=== PATIENT | female | born 1995 | race Caucasian/White ===

== ENCOUNTER 2016-04-19 11:11 | Emergency (ER) | payer OTHER ==
[2016-04-19 11:58] VITALS: BP 118/80
--- NOTE | 2016-04-19 12:25 | UC ---
Throat Pain/Nasal Jason HPI - HPI Summary HPI Summary: sinus congestion, sore throat, fever and right ear pain for 7 days. - History of Current Complaint Chief Complaint: UCEar Stated Complaint: SORE THROAT Time Seen by Provider: 04/19/16 12:05 Hx Obtained From: Patient Hx Last Menstrual Period: IS ON NEXPLAMON , DOES NOT HAVE REG PERIODS ?: No Onset/Duration: Sudden Onset, Lasting Weeks Severity: Mild Pain Intensity: 3 Pain Scale Used: 0-10 Numeric Cough: Nonproductive Associated Signs & Symptoms: Positive: Dysphagia, Sinus Discomfort, Nasal Discharge, Fever - Allergies/Home Medications Allergies/Adverse Reactions: Allergies Allergy/AdvReac Type Severity Reaction Status Date / Time No Known Allergies Allergy Verified 04/19/16 11:58 Home Medications: Home Medications [id number] [Vicks Dayquil/Nyquil Janina] 1 dose PO BEDTIME 07/01 [History Confirmed 04/19/16] PMH/Surg Hx/FS Hx/Imm Hx Previously Healthy: Yes GI/ History Of: Reports: Ulcer - Surgical History Surgical History: Yes Surgery Procedure, Year, and Place: ear surgery x5 (left)--scar tissue - Family History Known Family History: Positive: Other - MOther has FMH of ovarian cysts Negative: Hypertension - Social History Alcohol Use: None Substance Use Type: None Smoking Status (MU): Never Smoked Tobacco Household Exposure Type: Cigarettes - Immunization History Most Recent Tetanus Shot: utd Vaccination Up to Date: Yes Review of Systems Constitutional: Fever, Fatigue Skin: Negative Eyes: Negative ENT: Sore Throat, Ear Ache, Nasal Discharge Respiratory: Shortness Of Breath, Cough Cardiovascular: Negative Gastrointestinal: Negative Genitourinary: Negative Motor: Negative Neurovascular: Negative Musculoskeletal: Negative Neurological: Headache Psychological: Negative All Other Systems Reviewed And Are Negative: Yes Physical Exam Triage Information Reviewed: Yes Appearance: Well-Nourished, Ill-Appearing, Pain Distress Vital Signs: Initial Vital Signs Temp 97.8 F 04/19/16 11:53 Pulse 72 04/19/16 11:53 Resp 14 04/19/16 11:53 BP 118/80 04/19/16 11:53 Pulse Ox 100 04/19/16 11:53 Vital Signs Reviewed: Yes Eye Exam: Normal Eyes: Positive: Conjunctiva Inflamed ENT: Positive: Pharyngeal erythema, Nasal congestion, Nasal drainage, TM dull, TM red, Tonsillar swelling Dental Exam: Normal Neck exam: Normal Neck: Positive: Supple, Nontender, No Lymphadenopathy Respiratory Exam: Normal Respiratory: Positive: Chest non-tender, No respiratory distress, Rhonchi, Wheezing, Inspiration Cardiovascular Exam: Normal Cardiovascular: Positive: RRR, No Murmur Abdominal Exam: Normal Abdomen Description: Positive: Nontender, No Organomegaly, Soft Bowel Sounds: Positive: Present Musculoskeletal Exam: Normal Musculoskeletal: Positive: Strength Intact, ROM Intact, No Edema Neurological Exam: Normal Psychological Exam: Normal Skin Exam: Normal Throat Pain/Nasal Course/Dx - Course Course Of Treatment: history obtained, exam performed, rapid strep negative, medication prescribed. - Differential Dx/Diagnosis Differential Diagnosis/HQI/PQRI: Influenza, Laryngitis, Otitis Media, Pharyngitis, Sinusitis, Tonsillitis, URI Provider Diagnoses: Sinusitis. Bronchospasm Discharge - Discharge Plan Condition: Stable Disposition: HOME Prescriptions: Albuterol HFA INHALER* [Ventolin HFA Inhaler*] 1 - 2 puff INH Q4H PRN #1 mdi PRN Reason: Cough Azithromycin TAB* [Zithromax TAB (Z-JAI)*] 0 mg PO .Z-JAI INSTRUCTIONS #6 tab predniSONE TAB* [Deltasone TAB*] 40 mg PO DAILY #10 tab Additional Instructions: Take the medication as prescribed and follow up with any increase in symptoms even with treatment.
== END 2016-04-19 12:42 | disposition home or self-care (01) ==
LOC: UCCORT 11:11
DX: J32.9 Chronic sinusitis, unspecified (principal); J98.01 Acute bronchospasm; R50.9 Fever, unspecified; Z77.22 Contact with and (suspected) exposure to environmental tobacco smoke (acute) (chronic)
CPT/HCPCS: 87651; 99212; G0463

== ENCOUNTER 2016-08-10 13:30 | Emergency (ER) | payer OTHER ==
[2016-08-10 13:40] VITALS: BP 132/64
--- NOTE | 2016-08-10 14:44 | RAD ---
HISTORY: Trauma, headache COMPARISONS: None TECHNIQUE: Multiple contiguous axial CT scans were obtained of the head without intravenous contrast. FINDINGS: HEMORRHAGE/INFARCT: There is no hemorrhage or acute infarct. MASSES/SHIFT: There is no mass or shift. EXTRA-AXIAL SPACES: There are no extra-axial fluid collections. SULCI AND VENTRICLES: The sulci and ventricles are normal in size and position for the patient's stated age. CEREBRUM: There are no focal parenchymal abnormalities. BRAINSTEM: There are no focal parenchymal abnormalities. CEREBELLUM: There are no focal parenchymal abnormalities. VESSELS: The vessels are grossly normal. PARANASAL SINUSES: The paranasal sinuses are clear. ORBITS: The orbits are unremarkable. BONES AND SOFT TISSUE: No bone or soft tissue abnormalities are noted. OTHER: None IMPRESSION: NO ACUTE INTRACRANIAL PATHOLOGY.
--- NOTE | 2016-08-10 14:47 | RAD ---
HISTORY: Trauma, neck pain COMPARISONS: None TECHNIQUE: Multiple contiguous axial CT scans were obtained of the cervical spine without intravenous contrast, with coronal and sagittal multiplanar reformations. FINDINGS: BRAIN: The visualized brain is unremarkable CENTRAL CANAL: Evaluation of the central canal is limited on CT technique, however there is no obvious canalicular mass or epidural hemorrhage. ALIGNMENT: There is straightening of the normal cervical lordosis. VERTEBRAL BODIES: The odontoid process is intact. The atlantoaxial intervals are symmetric. The vertebral bodies are normal in attenuation, without fracture. JOINTS: There is no subluxation or dislocation MUSCULATURE: Unremarkable INTERVERTEBRAL DISCS: There is mild diffuse loss of intervertebral disc height. AXIAL IMAGES: On axial images, there is no osseous neural foraminal narrowing or central canal stenosis. SOFT TISSUES: The visualized soft tissues of the neck are unremarkable. The prevertebral fat stripe is preserved. OTHER: None. IMPRESSION: NO ACUTE OSSEOUS INJURY TO THE CERVICAL SPINE
--- NOTE | 2016-08-10 14:52 | UC ---
Head Injury HPI - HPI Summary HPI Summary: Patient was bucked off a horse 2 days ago, hit her back and then the side of her head, she is complaining of mild stiffness in the left rib cage, but has cervical tenderness and increase B[place] and photosensitivity. bilateral temperol headache that has increased since the incident. denies any dizzyness, bilateral TMJ pain - History Of Current Complaint Chief Complaint: UCHeadInjury Stated Complaint: HEAD INJURY Time Seen by Provider: 08/10/16 13:56 Hx Obtained From: Patient Hx Last Menstrual Period: 06/03 pt has nexplanon Onset/Duration: Sudden Onset, Lasting Days Severity Currently: Moderate Severity Initially: Severe Character: Throbbing, Pressure Aggravating Factor(s): Other - chewing.movement, laying down Alleviating Factor(s): Nothing Associated Signs And Symptoms: Positive: Neck Pain - Risk Factors SDH Risk Factor: Negative - Allergies/Home Medications Allergies/Adverse Reactions: Allergies Allergy/AdvReac Type Severity Reaction Status Date / Time No Known Allergies Allergy Verified 08/10/16 13:40 PMH/Surg Hx/FS Hx/Imm Hx Previously Healthy: Yes GI/ History Of: Reports: Ulcer - Surgical History Surgical History: Yes Surgery Procedure, Year, and Place: ear surgery x5 (left)--scar tissue - Family History Known Family History: Positive: Other - MOther has FMH of ovarian cysts Negative: Hypertension - Social History Alcohol Use: None Substance Use Type: None Smoking Status (MU): Never Smoked Tobacco Household Exposure Type: Cigarettes - Immunization History Most Recent Tetanus Shot: utd Vaccination Up to Date: Yes Review of Systems Constitutional: Fatigue Skin: Negative Eyes: Photophobia, Other - pressure behind eyes ENT: Dental Pain - TMJ bilateral Respiratory: Negative Cardiovascular: Negative Gastrointestinal: Negative Genitourinary: Negative Motor: Negative Neurovascular: Negative Musculoskeletal: Arthralgia, Myalgia - left ribs Neurological: Headache Psychological: Negative All Other Systems Reviewed And Are Negative: Yes Physical Exam Triage Information Reviewed: Yes Appearance: Well-Nourished, Ill-Appearing, Pain Distress Vital Signs: Initial Vital Signs Temp 98.5 F 08/10/16 13:35 Pulse 64 08/10/16 13:35 Resp 16 08/10/16 13:35 BP 132/64 08/10/16 13:35 Pulse Ox 98 08/10/16 13:35 Vital Signs Reviewed: Yes Eye Exam: Normal Eyes: Positive: Conjunctiva Clear, Other: - PERRLA, EOMI no nystagmus, ENT: Positive: Pharynx normal, TMs normal, TM bulging Dental Exam: Normal Neck exam: Normal Respiratory Exam: Normal Respiratory: Positive: Chest non-tender, Lungs clear, Normal breath sounds Cardiovascular Exam: Normal Cardiovascular: Positive: RRR, No Murmur, Pulses Normal Abdominal Exam: Normal Abdomen Description: Positive: Nontender, No Organomegaly, Soft Bowel Sounds: Positive: Present Musculoskeletal: Positive: Edema @ - irght TMJ Neurological Exam: Normal Neurological: Positive: Alert, Muscle Tone Normal, Other: - Cranial nerves intact, + rhomberg, gait is steady Psychological Exam: Normal Skin Exam: Normal Head Injury Course/Dx - Course Course Of Treatment: hx obtained,exam performed, meds reviewed, ct of head and C spine performed, - Differential Dx/Diagnosis Differential Diagnosis/HQI/PQRI: Cervical Sprain, Contusion, Hematoma, Intracranial Bleed, Nasal Fracture, Orbital Fracture Provider Diagnoses: concussion. photosensitivity. bilateral TMJ. whiplash Discharge - Discharge Plan Condition: Stable Disposition: HOME Patient Education Materials: Concussion (ED), Cervical Strain (ED) Additional Instructions: 1. take the next 2 days to rest, limit TV and screen time, do not do things that require good quick reaction time. heat, Advil, to jaw, neck and back as needed for pain. 2. If headaches persist follow up with your doctor so that you can be followed for symtpoms.
== END 2016-08-10 15:09 | disposition home or self-care (01) ==
LOC: UCCORT 13:30
DX: S06.0X9A Concussion with loss of consciousness of unspecified duration, initial encounter (principal); S13.4XXA Sprain of ligaments of cervical spine, initial encounter; V80.010A Animal-rider injured by fall from or being thrown from horse in noncollision accident, initial encounter; Y93.52 Activity, horseback riding; Y92.9 Unspecified place or not applicable; H53.143 Visual discomfort, bilateral; M26.603 Bilateral temporomandibular joint disorder, unspecified; Z32.02 Encounter for pregnancy test, result negative; Z77.22 Contact with and (suspected) exposure to environmental tobacco smoke (acute) (chronic)
CPT/HCPCS: 70450; 72125; 84702; 99212; G0463

== ENCOUNTER 2016-10-13 08:29 | Emergency (ER) | payer OTHER ==
[2016-10-13 08:39] VITALS: BP 104/65
--- NOTE | 2016-10-13 09:10 | UC ---
Throat Pain/Nasal Jason HPI - HPI Summary HPI Summary: [address] x a day or two multiple co workers with strep she had had mono - History of Current Complaint Chief Complaint: UCRespiratory Stated Complaint: SORE THROAT Time Seen by Provider: 10/13/16 09:04 Hx Obtained From: Patient Hx Last Menstrual Period: impl[place], does not get ?: Yes Onset/Duration: Gradual Onset, Lasting Hours Severity: Moderate Pain Intensity: 4 Pain Scale Used: 0-10 Numeric Cough: None Related History: Prior ENT Surgery - left ear - Allergies/Home Medications Allergies/Adverse Reactions: Allergies Allergy/AdvReac Type Severity Reaction Status Date / Time No Known Allergies Allergy Verified 10/13/16 08:39 PMH/Surg Hx/FS Hx/Imm Hx Previously Healthy: Yes - Surgical History Surgical History: Yes Surgery Procedure, Year, and Place: ear surgery x5 (left)--scar tissue - Family History Known Family History: Positive: Other - MOther has FMH of ovarian cysts Negative: Hypertension - Social History Alcohol Use: None Substance Use Type: None Smoking Status (MU): Never Smoked Tobacco Household Exposure Type: Cigarettes - Immunization History Most Recent Tetanus Shot: utd Vaccination Up to Date: Yes Review of Systems Constitutional: Negative Skin: Negative Eyes: Negative ENT: Sore Throat Respiratory: Negative Cardiovascular: Negative Gastrointestinal: Negative Genitourinary: Negative Motor: Negative Neurovascular: Negative Musculoskeletal: Negative Neurological: Negative Psychological: Negative All Other Systems Reviewed And Are Negative: Yes Physical Exam Triage Information Reviewed: Yes Appearance: Well-Appearing, No Pain Distress, Well-Nourished Vital Signs: Initial Vital Signs Temp 98.1 F 10/13/16 08:35 Pulse 54 10/13/16 08:35 Resp 14 10/13/16 08:35 BP 104/65 10/13/16 08:35 Pulse Ox 100 10/13/16 08:35 Vital Signs Reviewed: Yes Eyes: Positive: Conjunctiva Clear ENT: Positive: Pharyngeal erythema, Tonsillar swelling. Negative: Hearing grossly normal, TMs normal - left abnormal landmarks-not red, Trismus, Muffled/ hoarse voice Neck: Positive: Supple, Enlarged Nodes @ - ant cervica; Respiratory: Positive: Lungs clear, Normal breath sounds, No respiratory distress Cardiovascular: Positive: RRR, No Murmur Musculoskeletal: Positive: ROM Intact Neurological: Positive: Alert Psychological Exam: Normal Skin Exam: Normal Throat Pain/Nasal Course/Dx - Course Course Of Treatment: rs (-) - Differential Dx/Diagnosis Provider Diagnoses: acute pharyngitis Discharge - Discharge Plan Condition: Stable Disposition: HOME Prescriptions: Cephalexin CAP* [Keflex CAP*] 500 mg PO BID #20 cap Patient Education Materials: Pharyngitis (ED) Forms: *Work Release Referrals: Non Staff,Doctor [Primary Care Provider] - Additional Instructions: recheck in 3-4 days if not better rest fluids tylenol or advil if needed
== END 2016-10-13 09:14 | disposition home or self-care (01) ==
LOC: UCCORT 08:29
DX: J02.9 Acute pharyngitis, unspecified (principal)
CPT/HCPCS: 87651; 99212; G0463

== ENCOUNTER 2017-05-08 12:42 | Emergency (ER) | payer OTHER ==
[2017-05-08 13:46] VITALS: BP 123/76
--- NOTE | 2017-05-08 13:58 | UC ---
Headache HPI - HPI Summary HPI Summary: headaches x 1 week constant, 5/10 in intensity , + photophobia, nausea, no vomiting n no cold sx - History Of Current Complaint Chief Complaint: UCGeneralIllness Stated Complaint: MIGRANES Time Seen by Provider: 05/08/17 13:47 Hx Obtained From: Patient Hx Last Menstrual Period: 05/04/17 ?: No Onset/Duration: Gradual Onset, Lasting Weeks - 1, Still Present Onset Of Symptoms: Gradual, Still Present Initially Headache Was: Moderate Currently Pain Is: Moderate Timing: Constant Character: Migraine Location of Headache: Diffuse Aggravating Factor(s): Other - increase stress Associated Signs And Symptoms: Positive: Nausea. Negative: Dizziness, Seizure, Vomiting, Sinus Pressure, Fever, Neck Pain, Neck Stiffness, Decreased LOC, Visual Changes, Other (Noted In Comments) - Allergies/Home Medications Allergies/Adverse Reactions: Allergies Allergy/AdvReac Type Severity Reaction Status Date / Time No Known Allergies Allergy Verified 05/08/17 13:46 PMH/Surg Hx/FS Hx/Imm Hx Neurological History: Migraine - Surgical History Surgical History: Yes Surgery Procedure, Year, and Place: ear surgery x5 (left)--scar tissue - Family History Known Family History: Positive: Other - MOther has FMH of ovarian cysts Negative: Hypertension - Social History Alcohol Use: None Substance Use Type: None Smoking Status (MU): Never Smoked Tobacco Household Exposure Type: Cigarettes - Immunization History Most Recent Influenza Vaccination: NOT CURRENT Most Recent Tetanus Shot: utd Vaccination Up to Date: Yes Review of Systems Constitutional: Negative Skin: Negative Eyes: Negative ENT: Negative Respiratory: Negative Cardiovascular: Negative Neurological: Headache Is Patient Immunocompromised?: No All Other Systems Reviewed And Are Negative: Yes Physical Exam Triage Information Reviewed: Yes Appearance: Well-Appearing, No Pain Distress, Well-Nourished Vital Signs: Initial Vital Signs Temp 98.7 F 05/08/17 13:42 Pulse 67 05/08/17 13:42 Resp 18 05/08/17 13:42 BP 123/76 05/08/17 13:42 Pulse Ox 100 05/08/17 13:42 Vital Signs Reviewed: Yes Eyes: Positive: Conjunctiva Clear ENT: Positive: Normal ENT inspection, Hearing grossly normal, Pharynx normal Neck exam: Normal Neck: Positive: Supple, Nontender, No Lymphadenopathy Respiratory: Positive: Chest non-tender, Lungs clear, Normal breath sounds Cardiovascular: Positive: RRR, No Murmur, Pulses Normal Abdominal Exam: Normal Musculoskeletal Exam: Normal Musculoskeletal: Positive: Strength Intact, ROM Intact, No Edema Neurological: Positive: Alert UC Physical Exam Vital Signs On Initial Exam: Initial Vitals Temp Pulse Resp BP Pulse Ox 98.7 F 67 18 123/76 100 05/08/17 13:42 05/08/17 13:42 05/08/17 13:42 05/08/17 13:42 05/08/17 13:42 - Neurological Exam Neurological: Normal, Sensory/Motor Intact, Alert, Oriented to Person Place, Time, CN Intact II-III, Reflexes Intact, Normal Gait, Speech Normal Headache Course/Dx - Differential Dx/Diagnosis Provider Diagnoses: headach Discharge - Discharge Plan Condition: Stable Disposition: HOME Prescriptions: SUMAtriptan TAB* [Imitrex TAB*] 100 mg PO SEE INSTRUCTIONS #10 tab Patient Education Materials: Acute Headache (DC) Forms: *Work Release Referrals: Non Staff,Doctor [Primary Care Provider] - 7 Days
== END 2017-05-08 14:06 | disposition home or self-care (01) ==
LOC: UCCORT 12:42
DX: Z77.22 Contact with and (suspected) exposure to environmental tobacco smoke (acute) (chronic) (principal); R51 Headache
CPT/HCPCS: 99212; G0463

== ENCOUNTER 2017-11-06 08:13 | Emergency (ER) | payer OTHER ==
[2017-11-06 08:30] VITALS: BP 133/71
--- NOTE | 2017-11-06 08:58 | UC ---
Abdominal Pain Female HPI - HPI Summary HPI Summary: The patient is a 22-year-old female with a three-day history of nausea and vomiting. She is approximately 7 weeks . She has been tolerating some liquids. She has been unable to tolerate food. She has had 5-10 episodes of vomiting a day. Already this morning she has vomited 4-5 times. She denies any abdominal pain. She denies any back pain. For the past 24 hours she has been febrile. Her MAXIMUM TEMPERATURE has been 101. - History of Current Complaint Chief Complaint: UCGeneralIllness Stated Complaint: NAUSEA/FEVER Time Seen by Provider: 11/06/17 08:30 Hx Obtained From: Patient Hx Last Menstrual Period: 05/04/17 Onset/Duration: Gradual Onset Severity Initially: Mild Severity Currently: Moderate Pain Intensity: 0 Location: Other - none Character: Unable to describe Aggravating Factor(s): Nothing Alleviating Factor(s): Nothing Associated Signs and Symptoms: Positive: Fever, Nausea, Vomiting Allergies/Adverse Reactions: Allergies Allergy/AdvReac Type Severity Reaction Status Date / Time No Known Allergies Allergy Verified 11/06/17 08:28 Home Medications: Home Medications Pnv No.95/Ferrous Fum/Folic AC [ Vitamin & Minera 28-0.8 mg] 1 tab PO BEDTIME 11/06/17 [History Confirmed 11/06/17] PMH/Surg Hx/FS Hx/Imm Hx - Surgical History Surgical History: Yes Surgery Procedure, Year, and Place: ear surgery x5 (left)--scar tissue - Family History Known Family History: Positive: Other - MOther has FMH of ovarian cysts Negative: Hypertension - Social History Alcohol Use: None Substance Use Type: None Smoking Status (MU): Never Smoked Tobacco Household Exposure Type: Cigarettes - Immunization History Most Recent Influenza Vaccination: NOT CURRENT Most Recent Tetanus Shot: utd Vaccination Up to Date: Yes Review of Systems Constitutional: Negative, Fever, Fatigue Skin: Negative Eyes: Negative ENT: Negative Respiratory: Negative Cardiovascular: Negative Gastrointestinal: Vomiting, Nausea Genitourinary: Negative Motor: Negative Neurovascular: Negative Musculoskeletal: Negative Neurological: Negative Psychological: Negative Is Patient Immunocompromised?: No All Other Systems Reviewed And Are Negative: Yes Physical Exam Triage Information Reviewed: Yes Appearance: Well-Appearing, No Pain Distress, Well-Nourished Vital Signs: Initial Vital Signs Temp 97.9 F 11/06/17 08:24 Pulse 81 11/06/17 08:24 Resp 16 11/06/17 08:24 BP 133/71 11/06/17 08:24 Pulse Ox 100 11/06/17 08:24 ENT: Positive: Hearing grossly normal. Negative: Nasal congestion, Nasal drainage, Trismus, Muffled voice Dental Exam: Normal Neck: Positive: Supple, Nontender Respiratory: Positive: Chest non-tender, Lungs clear, Normal breath sounds, No respiratory distress Cardiovascular: Positive: RRR, No Murmur Abdomen Description: Positive: Nontender, No Organomegaly Musculoskeletal: Positive: ROM Intact, No Edema Neurological: Positive: Alert Psychological Exam: Normal Skin Exam: Normal Diagnostics - Laboratory Diagnostic Studies Completed/Ordered: uA+ leuks Abd Pain Female Course/Dx - Course Course Of Treatment: discussed with Alena Crisostomo NP. to [facility] ER - Differential Dx/Diagnosis Provider Diagnoses: nausea /vomiting/fever. first trimester Discharge - Sign-Out/Discharge Documenting (check all that apply): Patient Departure - Discharge Plan Condition: Stable Disposition: TRANS HIGHER LVL OF CARE FAC Referrals: No Primary Care Phys,NOPCP [Primary Care Provider] - Additional Instructions: I suggest you go to the ER I spoke to Alena Crisostomo NP and they are expecting you - Billing Disposition and Condition Condition: STABLE Disposition: Trans Higher Lvl of Care Fac
== END 2017-11-06 08:57 | disposition short-term general hospital (02) ==
LOC: UCCORT 08:13
DX: O26.891 Other specified pregnancy related conditions, first trimester (principal); Z3A.01 Less than 8 weeks gestation of pregnancy; R11.2 Nausea with vomiting, unspecified; R50.9 Fever, unspecified
CPT/HCPCS: 81003; 99212; G0463